=== PATIENT | female | born 1975 ===

== ENCOUNTER 2017-06-06 00:25 | Emergency (ER) | payer SELFPAY ==
[2017-06-06 00:52] VITALS: BP 153/99; PULSE 92; RESP 18; TEMP 98; O2SAT 100
[2017-06-06] MEDS ORDERED: Sodium Chloride 0.9% 1,000 ML IV STA (01:05)
[2017-06-06 01:20] LABS: BASO # 0.1 K/uL (0.0-0.2); BASO % 0.5 % (0.0-2.0); EOS % 0.1 % (0.0-4.0); LYMPH # 1.5 K/uL (1.0-4.3); LYMPH % 9.9 % (20.0-40.0); MEAN CORPUSCULAR HGB CONC 33.3 g/dL (33.0-37.0); MEAN PLATELET VOLUME 8.3 fl (7.2-11.7); MONO # 1.2 K/uL (0.0-0.8); MONO % 8.1 % (0.0-10.0); NEUT # 12.5 K/uL (1.8-7.0); NEUT % 81.4 % (50.0-75.0); PLATELET COUNT 249 K/uL (130-400); RBC 4.05 Mil/uL (3.80-5.20); RED CELL DISTRIBUTION WIDTH 13.2 % (11.5-14.5); WHITE BLOOD COUNT 15.4 K/uL (4.8-10.8)
[2017-06-06 01:25] LABS: SQUAMOUS EPITHIAL 1 /hpf (0-5); URINE BILIRUBIN NEGATIVE (NEGATIVE); URINE BLOOD SMALL (NEGATIVE); URINE CLARITY SLIGHTY-CLOUDY (Clear); URINE COLOR YELLOW (YELLOW); URINE GLUCOSE (UA) NEG (Normal); URINE LEUKOCYTE ESTERASE NEG Leu/uL (Negative); URINE NITRATE NEGATIVE (NEGATIVE); URINE PROTEIN NEGATIVE (NEGATIVE); URINE UROBILINOGEN 0.2-1.0 mg/dL (0.2-1.0)
[2017-06-06 01:30] LABS: ALB/GLOB RATIO 1.2 (1.0-2.1); ALBUMIN 4.1 g/dL (3.5-5.0); ALT/SGPT 71 U/L (9-52); AST/SGOT 48 U/L (14-36); BLOOD UREA NITROGEN 16 mg/dl (7-17); GFR AFRICAN-AMERICAN > 60; GFR NON-AFRICAN AMERICAN > 60; LIPASE 92 U/L (23-300)
[2017-06-06 02:11] LABS: LYMPHOCYTE 11 % (20-50); MONOCYTE 7 % (0-10); NEUTROPHIL 82 % (42-75); TOTAL CELLS COUNTED 100
[2017-06-06 02:12] LABS: ANISOCYTOSIS SLIGHT; PLATELET ESTIMATE NORMAL (NORMAL)
[2017-06-06] MEDS ORDERED: Sodium Chloride 0.9% 1,000 ML IV SCH (02:15)
--- NOTE | 2017-06-06 02:46 | ED PDOC ---
HPI: Abdomen Time Seen by Provider: 06/06/17 00:45 Chief Complaint (Nursing): Abdominal Pain Chief Complaint (Provider): abdominal pain History Per: Patient (42 y/o female here with left lower/flank pain mild x 2 days worsening today. Denies any N/V/D/fevers/chills. No h/o abdominal surgeries. ) Past Medical History Reviewed: Historical Data, Nursing Documentation, Vital Signs Vital Signs: Last Vital Signs Temp 98.0 F 06/06/17 00:42 Pulse 92 H 06/06/17 00:42 Resp 18 06/06/17 00:42 BP 153/99 H 06/06/17 00:42 Pulse Ox 100 06/06/17 02:49 - Family History Family History: States: No Known Family Hx - Home Medications Home Medications: Ambulatory Orders Medication Instructions Recorded Ciprofloxacin [Cipro] 500 mg PO BID #14 tab 06/06/17 Metronidazole [Flagyl] 500 mg PO QID #28 tablet 06/06/17 Ondansetron [Zofran Odt] 4 mg PO Q8 PRN #6 tab.rapdis 06/06/17 oxyCODONE/Acetaminophen [Percocet 1 ea PO Q6 PRN #5 tab 06/06/17 5/325 mg Tab] - Allergies Allergies/Adverse Reactions: Allergies Allergy/AdvReac Type Severity Reaction Status Date / Time No Known Allergies Allergy Verified 06/06/17 00:42 Review of Systems ROS Statement: Except As Marked, All Systems Reviewed And Found Negative Physical Exam - Reviewed Nursing Documentation Reviewed: Yes Vital Signs Reviewed: Yes - Physical Exam Appears: Positive for: Well, Non-toxic, No Acute Distress Head Exam: Positive for: ATRAUMATIC, NORMAL INSPECTION, NORMOCEPHALIC Skin: Positive for: Normal Color, Warm, DRY Eye Exam: Positive for: EOMI, Normal appearance, PERRL ENT: Positive for: Normal ENT Inspection Neck: Positive for: Normal, Painless ROM Cardiovascular/Chest: Positive for: Regular Rate, Rhythm Respiratory: Positive for: CNT, Normal Breath Sounds Gastrointestinal/Abdominal: Positive for: Normal Exam, Bowel Sounds, Soft, Tenderness (left flank/left paralumber tenderness.) Back: Positive for: Normal Inspection Extremity: Positive for: Normal ROM Neurologic/Psych: Positive for: Alert, Oriented - Laboratory Results Result Diagrams: 06/06/17 01:05 06/06/17 01:05 - ECG O2 Sat by Pulse Oximetry: 100 - Progress ED Course And Treament: toradol 15 mg iv x 1 dose ns 1 liter [address] abdomen/pelvis: diverticulitis noted of descending colon. Zosyn 4.5 gm iv x 1 dose Disposition - Clinical Impression Clinical Impression: Diverticulitis - Patient ED Disposition Is Patient to be Admitted: No - Disposition Referrals: Cm Huynh MD [Staff Provider] - Disposition: Routine/Home Disposition Time: 05:00 Condition: FAIR Prescriptions: Ciprofloxacin [Cipro] 500 mg PO BID #14 tab Metronidazole [Flagyl] 500 mg PO QID #28 tablet Ondansetron [Zofran Odt] 4 mg PO Q8 PRN #6 tab.rapdis PRN Reason: Nausea/Vomiting oxyCODONE/Acetaminophen [Percocet 5/325 mg Tab] 1 ea PO Q6 PRN #5 tab PRN Reason: Pain, Severe (8-10) Instructions: Diverticulitis (GEN) Forms: [employer] (Tongan) Print Language: ARABIC - POA Present On Arrival: None
[2017-06-06] MEDS ORDERED: Piperacillin/Tazobact 4.5 GM in Sodium Chloride 0.9% 100 ML IVPB STA (02:48)
--- NOTE | 2017-06-06 08:20 | CT ---
PROCEDURE: CT Abdomen and Pelvis without intravenous contrast HISTORY: LUQ/LEFT SIDE FLANK PAIN COMPARISON: None. TECHNIQUE: Axial and reformatted coronal and sagittal CT images of the abdomen and pelvis were obtained without IV or oral contrast administration.. Contrast Dose: 0 Radiation dose: Total exam DLP = 981.95 mGy-cm. This CT exam was performed using one or more of the following dose reduction techniques: Automated exposure control, adjustment of the mA and/or kV according to patient size, and/or use of iterative reconstruction technique. FINDINGS: LOWER THORAX: Unremarkable. LIVER: Unremarkable. No gross lesion or ductal dilatation. GALLBLADDER AND BILE DUCTS: Unremarkable. PANCREAS: Unremarkable. No gross lesion or ductal dilatation. SPLEEN: Unremarkable. ADRENALS: Unremarkable. No mass. KIDNEYS AND URETERS: There is a 2 millimeter nonobstructing calculus at the lower pole of the left kidney. There is also 2 millimeter nonobstructing calculus at the lower pole of the right kidney. No evidence of hydronephrosis or hydroureter. VASCULATURE: Unremarkable. No aortic aneurysm. BOWEL: There are scattered descending and sigmoid colon diverticulosis. There are inflammatory changes surrounding the proximal descending colon consistent with acute diverticulitis. There is no evidence of high-grade bowel obstruction. APPENDIX: Unremarkable. Normal appendix. PERITONEUM: Unremarkable. No free fluid. No free air. LYMPH NODES: Unremarkable. No enlarged lymph nodes. BLADDER: Unremarkable. REPRODUCTIVE: Unremarkable. BONES: No acute fracture. OTHER FINDINGS: None. IMPRESSION: Findings consistent with acute diverticulitis involving the proximal to mid descending colon. 2 millimeter nonobstructing calculus at the lower pole of the left kidney. No evidence of hydronephrosis or hydroureter. 2 millimeter nonobstructing calculus also seen at the lower pole of the right kidney. Preliminary report was submitted by [facility].
== END 2017-06-06 05:27 | disposition home or self-care (01) ==
LOC: H.ER 00:25
DX: K57.92 Diverticulitis of intestine, part unspecified, without perforation or abscess without bleeding (principal)
CPT/HCPCS: 74176; 80053; 81003; 83690; 85025; 87040; 96361; 96365; 96375; 99284; J1885; J2543; J7040

== ENCOUNTER 2018-11-09 17:57 | Emergency (ER) | payer MEDICAID ==
[2018-11-09 18:19] VITALS: O2SAT 98
[2018-11-09] MEDS ORDERED: Sodium Chloride 0.9% 500 ML IV STA (19:16)
[2018-11-09 19:40] LABS: BASO # 0.1 K/uL (0.0-0.2); BASO % 0.3 % (0.0-2.0); HEMOGLOBIN 15.3 g/dL (12.0-16.0); LYMPH # 1.3 K/uL (1.0-4.3); MEAN CELL VOLUME 96.8 fl (81.0-99.0); MEAN CORPUSCULAR HEMOGLOBIN 32.4 pg (27.0-31.0); MEAN CORPUSCULAR HGB CONC 33.5 g/dL (33.0-37.0); MEAN PLATELET VOLUME 9.2 fl (7.2-11.7); MONO # 0.4 K/uL (0.0-0.8); MONO % 1.6 % (0.0-10.0); NEUT # 23.2 K/uL (1.8-7.0); NEUT % 93.1 % (50.0-75.0); NRBC % 0.1 % (0.0-0.0); PLATELET COUNT 324 K/uL (130-400); RBC 4.72 Mil/uL (3.80-5.20); RED CELL DISTRIBUTION WIDTH 12.8 % (11.5-14.5); WHITE BLOOD COUNT 24.9 K/uL (4.8-10.8)
[2018-11-09 19:54] LABS: BLOOD UREA NITROGEN 18 mg/dl (7-17); GFR NON-AFRICAN AMERICAN > 60
[2018-11-09 19:56] LABS: ALBUMIN 4.7 g/dL (3.5-5.0); ALT/SGPT 49 U/L (9-52); AST/SGOT 51 U/L (14-36)
--- NOTE | 2018-11-09 20:02 | ED PDOC ---
History of Present Illness History of Present Illness: 43 year old female with no significant past medical history presents to the ED with flu-like symptoms for x2 days. Patient reports she has body aches, nausea, headache, sore throat, malaise, fatigue but denies cough and runny nose. Positive sick contact, her had similar symptoms but not as severe. Patient has epigastric pain but denies vomiting or diarrhea. She hasnt taken any medications for symptoms. Patient recently travelled to the [facility] [place]. PMD: no regular doctor HPI: Influenza Time Seen by Provider: 11/09/18 18:27 Chief Complaint: Dizziness/Lightheaded Chief Complaint (Provider): Flu-like symptoms History Per: Patient Exam Limitations: no limitations Onset/Duration Of Symptoms: Days (x2) Symptoms include: headache, bodyaches, sore throat. denies: cough, nasal co ngestion, vomiting, diarrhea Sick Contacts (Context): Family Member(s) Past Medical History Reviewed: Historical Data, Nursing Documentation, Vital Signs Vital Signs: Last Vital Signs Temp 98.4 F 11/09/18 18:13 Pulse 64 11/09/18 18:13 Resp 18 11/09/18 18:45 BP 126/54 L 11/09/18 18:13 Pulse Ox 98 11/09/18 18:13 - Medical History PMH: No Chronic Diseases - Surgical History Other surgeries: abdominoplasty and breast augmentation - Family History Family History: States: Diabetes - Social History Current smoker - smoking cessation education provided: No Ex-Smoker (has not smoked in the last 12 months): No Alcohol: Occasional - Home Medications Home Medications: Ambulatory Orders Medication Instructions Recorded Ciprofloxacin [Cipro] 500 mg PO BID #14 tab 06/06/17 Metronidazole [Flagyl] 500 mg PO QID #28 tablet 06/06/17 Ondansetron [Zofran Odt] 4 mg PO Q8 PRN #6 tab.rapdis 06/06/17 oxyCODONE/Acetaminophen [Percocet 1 ea PO Q6 PRN #5 tab 06/06/17 5/325 mg Tab] - Allergies Allergies/Adverse Reactions: Allergies Allergy/AdvReac Type Severity Reaction Status Date / Time No Known Allergies Allergy Verified 11/09/18 18:19 Review of Systems ROS Statement: Except As Marked, All Systems Reviewed And Found Negative Constitutional: Positive for: Malaise, Other (fatigue) ENT: Positive for: Throat Pain. Negative for: Nose Discharge Respiratory: Negative for: Cough Gastrointestinal: Positive for: Nausea, Abdominal Pain. Negative for: Vomiting, Diarrhea Musculoskeletal: Positive for: Other (body aches) Neurological: Positive for: Headache Physical Exam - Reviewed Nursing Documentation Reviewed: Yes Vital Signs Reviewed: Yes - Physical Exam Appears: Positive for: Well, No Acute Distress Head Exam: Positive for: ATRAUMATIC, NORMOCEPHALIC Skin: Positive for: Warm, Dry Eye Exam: Positive for: EOMI, PERRL ENT: Positive for: Pharynx Is (clear). Negative for: Pharyngeal Erythema, Tonsillar Exudate Neck: Positive for: Painless ROM, Supple Cardiovascular/Chest: Positive for: Regular Rate, Rhythm. Negative for: Murmur Respiratory: Positive for: Normal Breath Sounds. Negative for: Wheezing Gastrointestinal/Abdominal: Positive for: Soft, Tenderness (mild epigastric tenderness to palpation ). Negative for: Mass, Distended, Guarding, Rebound Back: Positive for: Normal Inspection. Negative for: Muscle Spasm Extremity: Positive for: Normal ROM. Negative for: Deformity Lymphatic: Negative for: Adenopathy Neurologic/Psych: Positive for: Alert. Negative for: Aphasia Medical Decision Making Medical Decision Making: Time: 1826 Impression: influenza-like illness Plan: --CMP --Drug screen --Magnesium --Phosphorous --Thyroid stimulating hormone --u preg --u dip --CBC --ns --Tamiflu 75 g PO --Toradol 30 mg IV --Tylenol 975 mg PO --infectious mononucleosis Labs demonstrate markedly elevated WBCs, otherwise no clinically significant abnormalities. Given GI symptoms, CT ordered for possible colitis/enteritis EXAM: CT Abdomen and Pelvis with IV contrast CLINICAL HISTORY: Nausea, abd pain TECHNIQUE: Axial computed tomography images of the abdomen and pelvis with intravenous contrast. 855.40 mGy-cm CONTRAST: With; [id number] 95ML COMPARISON: None provided. FINDINGS: LUNG BASES: The lung bases appear clear. No pleural effusions are seen. LIVER: Unremarkable. GALLBLADDER AND BILE DUCTS: The gallbladder appears within normal limits. No radioopaque gallstones are seen. No biliary ductal dilatation is evident. PANCREAS: Unremarkable. SPLEEN: Unremarkable. ADRENAL GLANDS: Unremarkable. KIDNEYS, URETERS, AND BLADDER: Bladder wall thickening is noted measuring up to 5 mm, consistent with cystitis. STOMACH AND BOWEL: Thick walled fluid filled duodenum and loops of jejunum as well as ileum compatible with enteritis. Infectious and inflammatory etiologies are considered. Fecalization of ileum without transition point, compatible with ileus vs partial obstruction. Consider follow up with CT performed with oral contrast. APPENDIX: No evidence of acute appendicitis on CT examination. PERITONEUM: No free fluid. No free air. LYMPH NODES: No lymphadenopathy is evident. REPRODUCTIVE: Status post complete hysterectomy. VASCULATURE: No evidence of abdominal aortic aneurysm. BONES: No aggressive appearing osseous lesion. No acute osseous pathology evident. MISCELLANEOUS: Diffuse bilateral buttock injection granulomas/swelling. IMPRESSION: 1. Thick walled fluid filled duodenum and loops of jejunum as well as ileum compatible with enteritis. Infectious and inflammatory etiologies are considered. 2. Fecalization of ileum without transition point, compatible with ileus vs partial obstruction. Consider follow up with CT performed with oral contrast. 3. Diffuse bilateral buttock injection granulomas/swelling. 4. Bladder wall thickening is noted measuring up to 5 mm, consistent with cystitis. 5. Status post complete hysterectomy. Electronically signed on Nov 09, 2018 10:17:32 PM EST by: Jordan Mabry M.D., MBA Certified By ABR & [facility] Fellowship Trained MRI and CT Specialist DW pt findings. Oral contrast ordered for repeat CT to further evaluated for ileus or partial obstruction. Scribe Attestation: Documented by Damaris Candelario, acting as a scribe for Yarely Evans MD. Provider Scribe Attestation: All medical record entries made by the Scribe were at my direction and personally dictated by me. I have reviewed the chart and agree that the record accurately reflects my personal performance of the history, physical exam, medical decision making, and the department course for this patient. I have also personally directed, reviewed, and agree with the discharge instructions and disposition. Time: 0000 -- Patient endorsed to Dr. Cabrera, pending CT Abd/Pelvis w Contrast. If CT results are normal, patient to be discharged home. Scribe Attestation: Documented by Guido Ruvalcaba, acting as a scribe for Yarely Evans MD. Provider Scribe Attestation: All medical record entries made by the Scribe were at my direction and personally dictated by me. I have reviewed the chart and agree that the record accurately reflects my personal performance of the history, physical exam, medical decision making, and the department course for this patient. I have also personally directed, reviewed, and agree with the discharge instructions and disposition. - Laboratory Results Result Diagrams: 11/09/18 19:30 11/09/18 19:30 Lab Results: Total Bilirubin 0.7 mg/dl (0.2-1.3) 11/09/18 19:30 AST 51 U/L (14-36) H 11/09/18 19:30 ALT 49 U/L (9-52) 11/09/18 19:30 Alkaline Phosphatase 103 U/L (38-126) 11/09/18 19:30 Total Protein 9.4 G/DL (6.3-8.2) H 11/09/18 19:30 Albumin 4.7 g/dL (3.5-5.0) 11/09/18 19:30 Globulin 4.7 gm/dL (2.2-3.9) H 11/09/18 19:30 Albumin/Globulin Ratio 1.0 (1.0-2.1) 11/09/18 19:30 - ECG O2 Sat by Pulse Oximetry: 98 (RA) Pulse Ox Interpretation: Normal Disposition - Clinical Impression Clinical Impression: Diverticulitis - Patient ED Disposition Is Patient to be Admitted: Transfer of Care Counseled Patient/Family Regarding: Studies Performed - Disposition Referrals: Malachi Arteaga MD, PhD [Staff Provider] - Disposition: Transfer of Care Disposition Time: 00:00 Condition: STABLE Additional Instructions: Follow up with gastroentologist for diverticulitis. Increase fluids and rest while symptoms last. Follow up with primary doctor as needed. Take Motrin or Tylenol for pain. Print Language: LITHUANIAN Patient Signed Over To: Lorena Cabrera Handoff Comments: pending CT results
[2018-11-09 20:35] LABS: BANDS 2 % (0-2); EOSINOPHIL 1 % (0-7); LYMPHOCYTE 8 % (20-50); MONOCYTE 3 % (0-10); NEUTROPHIL 86 % (42-75); PLATELET ESTIMATE NORMAL (NORMAL); TOTAL CELLS COUNTED 100
[2018-11-09] MEDS ORDERED: Sodium Chloride 0.9% 50 ML IV ONE (21:03)
[2018-11-09] MEDS ORDERED: Iohexol 300 100 ML IJ ONE (21:03)
[2018-11-09] MEDS ORDERED: Iohexol 240 (50 ml) PO STA (22:28)
[2018-11-10 00:05] VITALS: BP 132/89; PULSE 60; RESP 16; TEMP 98.5
--- NOTE | 2018-11-10 00:20 | ED PDOC ---
- Laboratory Results Result Diagrams: 11/09/18 19:30 11/09/18 19:30 Lab Results: Total Bilirubin 0.7 mg/dl (0.2-1.3) 11/09/18 19:30 AST 51 U/L (14-36) H 11/09/18 19:30 ALT 49 U/L (9-52) 11/09/18 19:30 Alkaline Phosphatase 103 U/L (38-126) 11/09/18 19:30 Total Protein 9.4 G/DL (6.3-8.2) H 11/09/18 19:30 Albumin 4.7 g/dL (3.5-5.0) 11/09/18 19: Globulin 4.7 gm/dL (2.2-3.9) H 11/09/18 19:30 Albumin/Globulin Ratio 1.0 (1.0-2.1) 11/09/18 19:30 Lipase 58 U/L (23-300) 11/09/18 21:00 - ECG O2 Sat by Pulse Oximetry: 98 (RA) Pulse Ox Interpretation: Normal Medical Decision Making Medical Decision Making: Time: 0000 -- Patient endorsed to me by Dr. Evans, pending CT Abd/Pelvis with Contrast. If CT results are normal, patient do be discharged home. Time: 0138 CT RESULTS COMMENTS: Bilateral prominent changes of gluteal subcutaneous fat panniculitis. Unchanged. Uncomplicated chronic diverticulosis. The liver is of uniform attenuation without mass or defect. There is no intra or extrahepatic biliary ductal dilatation. The spleen is normal. The gallbladder is within normal limits. The pancreas is of normal contour and attenuation characteristics. There is no evidence of adrenal mass. Both kidneys demonstrate prompt and equal nephrograms. The kidneys are normal in size, shape and configuration. There is no evidence of renal or ureteral mass. No renal or ureteral calculi are identified. There is no hydroureter or hydronephrosis. No evidence for appendicitis. There is no bowel wall thickening. No evidence for small or large bowel obstruction. There is no evidence of abdominal ascites or lymphadenopathy. There is no evidence of intrinsic or extrinsic bladder mass. There is no pelvic ascites or lymphadenopathy. Images of the lung bases show no evidence of pleural or parenchymal mass. There are no pleural effusions. The bony structures are free of lytic or blastic lesions. Bilateral breast prostheses are noted. IMPRESSION: Bilateral prominent changes of gluteal subcutaneous fat panniculitis. Unchanged. Uncomplicated chronic diverticulosis. No evidence of acute abdominal or pelvic pathology. Thank you for your kind referral of this patient. Electronically signed on Nov 10, 2018 1:38:54 AM EST by: Alla Moran M.D., Certified by ABR, MSK, Neuroradiology Time: 158 -- CT shows diverticulitis without complication or signs of infection. Patient referred for GI follow up. Patient to additionally follow up with PMD. Tylenol and Motrin prescribed for pain. Work note given. Return parameters discussed. Scribe Attestation: Documented by Guido Ruvalcaba, acting as a scribe for Lorena Cabrera MD. Provider Scribe Attestation: All medical record entries made by the Scribe were at my direction and personally dictated by me. I have reviewed the chart and agree that the record accurately reflects my personal performance of the history, physical exam, medical decision making, and the department course for this patient. I have also personally directed, reviewed, and agree with the discharge instructions and disposition. Disposition Counseled Patient/Family Regarding: Studies Performed, Diagnosis, Need For Foll owup, Rx Given - Clinical Impression Clinical Impression: Diverticulitis - POA Present On Arrival: None - Disposition Referrals: Malachi Arteaga MD, PhD [Staff Provider] - Disposition: Routine/Home Disposition Time: 01:59 Condition: STABLE Additional Instructions: Follow up with gastroentologist for diverticulitis. Increase fluids and rest while symptoms last. Follow up with primary doctor as needed. Take Motrin or Tylenol for pain. Instructions: Diverticulitis (DC) Forms: [employer] (Tanzanian), [facility] ED School/Work Excuse Print Language: VIETNAMESE
--- NOTE | 2018-11-10 14:20 | CT ---
Date of service: 11/09/2018 PROCEDURE: CT Abdomen and Pelvis with contrast HISTORY: nausea abdominal pain COMPARISON: 06/06/2017 CT abdomen and pelvis TECHNIQUE: Intravenous contrast dose: 95 cc Omnipaque 300. Radiation dose: Total exam DLP = 855.40 mGy-cm. This CT exam was performed using one or more of the following dose reduction techniques: Automated exposure control, adjustment of the mA and/or kV according to patient size, and/or use of iterative reconstruction technique. FINDINGS: LOWER THORAX: Unremarkable. LIVER: Unremarkable. No gross lesion or ductal dilatation. GALLBLADDER AND BILE DUCTS: Unremarkable. PANCREAS: Unremarkable. No gross lesion or ductal dilatation. SPLEEN: Unremarkable. ADRENALS: Unremarkable. No mass. KIDNEYS AND URETERS: Unremarkable. No hydronephrosis. No solid mass. VASCULATURE: Unremarkable. No aortic aneurysm. No atherosclerotic calcification or mural plaque present. BOWEL: Diverticulosis without an acute inflammatory component or other associated pathologic process. APPENDIX: A normal appendix is visualized in it's entirety. PERITONEUM: Unremarkable. No free fluid. No free air. LYMPH NODES: Unremarkable. No enlarged lymph nodes. BLADDER: Unremarkable. REPRODUCTIVE: Prior hysterectomy BONES: No acute fracture. OTHER FINDINGS: None. IMPRESSION: No acute or significant findings related to/ accounting for the clinical presentation. Additional benign and/or incidental findings described above. No significant interval change compared to the prior examination(s).
--- NOTE | 2018-11-10 14:45 | CT ---
Date of service: 11/10/2018 PROCEDURE: CT Abdomen and Pelvis with contrast HISTORY: nausea abdominal discomfort leukocytosis COMPARISON: November 09, 2018. CT abdomen and pelvis. Yes ulnar TECHNIQUE: Oral contrast only. Radiation dose: Total exam DLP = 1096.27 mGy-cm. This CT exam was performed using one or more of the following dose reduction techniques: Automated exposure control, adjustment of the mA and/or kV according to patient size, and/or use of iterative reconstruction technique. FINDINGS: LOWER THORAX: Unremarkable. LIVER: Unremarkable. No gross lesion or ductal dilatation. GALLBLADDER AND BILE DUCTS: Unremarkable. PANCREAS: Unremarkable. No gross lesion or ductal dilatation. SPLEEN: Unremarkable. ADRENALS: Unremarkable. No mass. KIDNEYS AND URETERS: Unremarkable. No hydronephrosis. No solid mass. VASCULATURE: Unremarkable. No aortic aneurysm. No atherosclerotic calcification or mural plaque present. BOWEL: Diverticulosis without an acute inflammatory component or other associated pathologic process. APPENDIX: Normal appendix. PERITONEUM: Unremarkable. No free fluid. No free air. LYMPH NODES: Unremarkable. No enlarged lymph nodes. BLADDER: Unremarkable. REPRODUCTIVE: Unremarkable. BONES: No acute fracture. OTHER FINDINGS: Extensive gluteal injection granulomas. IMPRESSION: No acute or significant findings related to/ accounting for the clinical presentation. Additional benign and/or incidental findings described above. No significant interval change compared to the prior examination(s). Concordant results (preliminary interpretation) provided by [facility]. Procedure Completed: 00:32. Preliminary Report: Dictated and Authenticated: 01:30. Final Interpretation: 14:42.
== END 2018-11-10 02:09 | disposition home or self-care (01) ==
LOC: H.ER 17:57 → EDBD 17:57 → H.ER 11-10 02:09
DX: K57.92 Diverticulitis of intestine, part unspecified, without perforation or abscess without bleeding (principal); Z87.891 Personal history of nicotine dependence; Z90.710 Acquired absence of both cervix and uterus
CPT/HCPCS: 74176; 74177; 80053; 81025; 83605; 83690; 83735; 84100; 84443; 85025; 86308; 87040; 87070; 87430; 96361; 96374; 99283; J1885; J7040; Q9966; Q9967